=== PATIENT | female | born 1970 | race Caucasian/White ===

== ENCOUNTER 2021-07-12 00:32 | Emergency (ER) | payer OTHER ==
[~2021-07-12 00:32] MED LIST: AMBIEN10 MG PO; AMBIEN5 MG PO; ASPIRIN EC81 MG PO; ATIVAN0.5 MG PO; AUGMENTIN 875-1 EACH PO; COLESTIPOL HCL1 GM PO; DITROPAN5 MG PO; FLONASE ALLER15.8 ML; IBUPROFEN400 MG PO; LOVAZA1 GM PO; METFORMIN HCL500 MG PO; NITROQUIK SL0.4 MG SL; OMEPRAZOLE40 MG PO; PERCOCET 5-3251 EACH PO; TOPROL XL 25MG25 MG PO; TOPROL XL 50 MG50 MG PO; ZOFRAN4 M1 PO; ZOLOFT50 M1 PO; ZYRTEC10 M3 PO
== END 2021-07-12 02:30 | disposition home or self-care (01) ==
LOC: FER 00:32
DX: R60.9 Edema, unspecified (principal); T46.1X5A Adverse effect of calcium-channel blockers, initial encounter; I10 Essential (primary) hypertension; E11.9 Type 2 diabetes mellitus without complications; Z88.5 Allergy status to narcotic agent; Z88.8 Allergy status to other drugs, medicaments and biological substances; Z79.84 Long term (current) use of oral hypoglycemic drugs; Z79.899 Other long term (current) drug therapy
CPT/HCPCS: 93005

== ENCOUNTER 2022-03-21 20:44 | Emergency (ER) | payer OTHER ==
[2022-03-22 01:32] LABS: BASOPHIL 0.2 % (0-2); EOSINOPHIL 0 % (0-5); HCT 43.4 % (37.0-47.0); HGB 15.1 g/dl (12.5-16.0); LYMPHOCYTE 14.9 % (15-48); MCH 32.1 pg (25.0-31.0); MCHC 34.8 g/dL (32.0-36.0); MCV 92.3 fL (78.0-100.0); MONOCYTE 4.9 % (0-12); MPV 10.2 fL (6.0-9.5); NEUTROPHIL 79.5 % (41-80); NRBC 0; PLT 285 K/uL (150-400); RDW 12.1 % (11.5-14.0); WBC 13.2 K/uL (4.0-10.5)
[2022-03-22 01:54] LABS: BUN/CREAT RATIO (CALC) 12.7 RATIO; CREATININE 1.02 mg/dL (0.51-0.95); POTASSIUM 3.3 mmol/L (3.5-5.1)
[2022-03-22] MEDS ORDERED: PHENERGAN25 M1 PO (04:54)
== END 2022-03-22 05:10 | disposition home or self-care (01) ==
LOC: FER 20:44
PROVIDERS: Internal Medicine
DX: U07.1 COVID-19 (principal); I10 Essential (primary) hypertension; E11.9 Type 2 diabetes mellitus without complications; Z88.5 Allergy status to narcotic agent; Z79.84 Long term (current) use of oral hypoglycemic drugs; Z79.899 Other long term (current) drug therapy
CPT/HCPCS: 36415; 80048; 84145; 85025; J1100; J1885; J2550; J7030; J7120